=== PATIENT | female | born 1960 | race Caucasian/White ===

== ENCOUNTER 2019-03-16 15:53 | Inpatient (IN) | payer OTHER ==
[~2019-03-16] VITALS: Ht 172.7 cm; Wt 88.6 kg
[2019-03-16 16:18] VITALS: Ht 172.7 cm; Wt 88.6 kg
[2019-03-16 18:14] LABS: PLATELET COUNT 187 x10^3mcL (130-400)
[2019-03-16 18:19] LABS: BILIRUBIN TOTAL 0.9 mg/dL (0.20-1.00); CARBON DIOXIDE 31.8 mmol/L (21-32); POTASSIUM SERUM 3.8 mmol/L (3.5-5.1); TOTAL PROTEIN, SERUM 7.4 g/dL (6.4-8.2)
[2019-03-16 18:32] LABS: ALBUMIN 2.9 g/dL (3.4-5.0); BAND NEUTROPHIL 2 % (0-10); BASOPHIL 0 % (0-2); CREATININE SERUM 1.5 mg/dL (0.6-1.0); MONOCYTE 1 % (0-7); SEGMENTED NEUTROPHILS 89 % (37-75)
[2019-03-16 18:33] LABS: PLATELET MORPHOLOGY PLATELETS NORMAL; rbc morphology (normal/abnorm) NORMAL (NORMAL)
[2019-03-16 18:50] LABS: UA SPECIFIC GRAVITY >=1.030 (1.005-1.035); microscopic required? YES; urine erythrocyte NEGATIVE (NEGATIVE)
[2019-03-16] MEDS ORDERED: NEU300 PO (20:27)
[2019-03-16] MEDS ORDERED: CYMBALTA60 M1 PO (20:28)
[2019-03-16] MEDS ORDERED: METHADONE (20:31)
[2019-03-16] MEDS ORDERED: SEROQUEL XR300 M1 PO (20:32)
[2019-03-16 22:24] LABS: CHOLESTEROL/HDL RATIO 2.8; MAGNESIUM 1.8 mg/dL (1.8-2.4); PHOSPHOROUS 2.9 mg/dL (2.5-4.9)
[2019-03-16 22:44] VITALS: BP 87/38
[2019-03-16 23:38] VITALS: BP 87/38
[2019-03-17 05:24] VITALS: BP 105/54
[2019-03-17 06:27] LABS: PLATELET COUNT 174 x10^3mcL (130-400)
[2019-03-17 06:55] LABS: CALCIUM 8.5 mg/dL (8.5-10.1); CARBON DIOXIDE 30.6 mmol/L (21-32); CREATININE SERUM 1.2 mg/dL (0.6-1.0); POTASSIUM SERUM 4.1 mmol/L (3.5-5.1)
[2019-03-17 07:19] LABS: BASOPHIL % 0 % (0-2); RED CELL DISTRIBUTION WIDTH 17.3 % (11.5-14.5)
[2019-03-17 08:28] VITALS: BP 111/62
[2019-03-17 11:53] VITALS: BP 98/68
[2019-03-17 15:57] VITALS: BP 96/61
[2019-03-17 20:27] VITALS: BP 115/58
[2019-03-18 05:04] VITALS: BP 108/63
[2019-03-18 06:51] LABS: CALCIUM 8.5 mg/dL (8.5-10.1); CARBON DIOXIDE 35.6 mmol/L (21-32); CHLORIDE SERUM 104 mmol/L (98-107); CREATININE SERUM 0.8 mg/dL (0.6-1.0); GFR1 > 60 mL/min; GLUCOSE SERUM 92 mg/dL (74-106); PHOSPHOROUS 2.7 mg/dL (2.5-4.9); POTASSIUM SERUM 3.8 mmol/L (3.5-5.1); SODIUM SERUM 143 mmol/L (136-145)
[2019-03-18 07:00] LABS: PLATELET COUNT 183 x10^3mcL (130-400)
[2019-03-18 12:33] LABS: BAND NEUTROPHIL 7 % (0-10); MONOCYTE 6 % (0-7); SEGMENTED NEUTROPHILS 75 % (37-75)
[2019-03-18 12:34] LABS: PLATELET MORPHOLOGY PLATELETS NORMAL
[2019-03-18 12:37] LABS: rbc morphology (normal/abnorm) ABNORMAL (NORMAL)
[2019-03-18 13:13] VITALS: BP 143/61
[2019-03-18 17:20] VITALS: BP 108/49
[2019-03-18 20:58] VITALS: BP 129/76
[2019-03-19 04:56] VITALS: BP 110/52
[2019-03-19] MEDS ORDERED: NORCO1 TA2 PO (08:48)
[2019-03-19 09:26] VITALS: BP 99/58
[2019-03-19 12:35] VITALS: BP 87/44
[2019-03-19 13:54] VITALS: BP 87/44
[2019-03-19 16:49] VITALS: BP 102/67
[2019-03-19 21:01] VITALS: BP 104/58
[2019-03-20 05:41] VITALS: BP 112/76
[2019-03-20 08:47] VITALS: BP 105/63
[2019-03-20 14:19] VITALS: BP 105/63
== END 2019-03-20 20:02 | DRG 313 ==
LOC: ED 15:53 → EDBD 21:27 → MU 21:27 → DU 21:27 → MU 03-19 12:39
PROVIDERS: Emergency Medicine; Podiatrist Foot & Ankle Surgery; ADMIT Internal Medicine
PROC: 0QSG04Z Reposition Right Tibia with Internal Fixation Device, Open Approach (ICD-10-PCS; 2019-03-18)
PROC: 0QSJ04Z Reposition Right Fibula with Internal Fixation Device, Open Approach (ICD-10-PCS; principal; 2019-03-18 07:30)
DX: S82.851A Displaced trimalleolar fracture of right lower leg, initial encounter for closed fracture (principal); N17.0 Acute kidney failure with tubular necrosis; J96.01 Acute respiratory failure with hypoxia; R65.10 Systemic inflammatory response syndrome (SIRS) of non-infectious origin without acute organ dysfunction; J44.1 Chronic obstructive pulmonary disease with (acute) exacerbation; N39.0 Urinary tract infection, site not specified; M54.5 Low back pain; K21.9 Gastro-esophageal reflux disease without esophagitis; G89.29 Other chronic pain; F17.210 Nicotine dependence, cigarettes, uncomplicated; S70.02XA Contusion of left hip, initial encounter; W01.0XXA Fall on same level from slipping, tripping and stumbling without subsequent striking against object, initial encounter; Y93.89 Activity, other specified; Y92.018 Other place in single-family (private) house as the place of occurrence of the external cause; Z98.1 Arthrodesis status
CPT/HCPCS: 83880; 97116-GP; 97530-GP; 99406; C1713; J0171; J0696; J2250; J2270; J3010; J3490; J7030; J7613; J7620; Q0092

== ENCOUNTER 2019-03-27 21:48 | Inpatient (IN) | payer OTHER ==
[~2019-03-27] VITALS: Ht 170.2 cm; Wt 94.8 kg
[~2019-03-27 21:48] MED LIST: CYMBALTA60 M1 PO; METHADONE; NEU300 PO; NORCO1 TA2 PO; SEROQUEL XR300 M1 PO
[2019-03-27 22:00] VITALS: Ht 170.2 cm; Wt 94.8 kg
[2019-03-28] VITALS (8 sets, daily range): BP systolic 96–113; BP diastolic 44–65
[2019-03-28 01:04] LABS: CALCIUM 8.2 mg/dL (8.5-10.1); CARBON DIOXIDE 32.3 mmol/L (21-32); CHLORIDE SERUM 104 mmol/L (98-107); CREATININE SERUM 0.7 mg/dL (0.6-1.0); GFR1 > 60 mL/min; GLUCOSE SERUM 95 mg/dL (74-106); POTASSIUM SERUM 3.8 mmol/L (3.5-5.1); SODIUM SERUM 143 mmol/L (136-145)
[2019-03-28 01:06] LABS: PLATELET COUNT 332 x10^3mcL (130-400); RED CELL DISTRIBUTION WIDTH 16.9 % (11.5-14.5)
[2019-03-28 01:08] LABS: ALBUMIN 1.9 g/dL (3.4-5.0); ALKALINE PHOSPHATASE 152 U/L (46-116); ALT/SGPT 16 U/L (14-59); AST/SGOT 20 U/L (15-37); BILIRUBIN TOTAL 0.62 mg/dL (0.20-1.00); TOTAL PROTEIN, SERUM 6.2 g/dL (6.4-8.2)
[2019-03-28 01:19] LABS: CK-MB 0.9 ng/mL (0-3.6)
[2019-03-28 01:39] LABS: microscopic required? YES; urine erythrocyte NEGATIVE (NEGATIVE)
[2019-03-28] MEDS ORDERED: GOOD NEIGH1200 MG/15 PO (02:46)
[2019-03-28] MEDS ORDERED: DULCOLAX10 M1 RC (02:46)
[2019-03-28 04:07] LABS: MAGNESIUM 1.8 mg/dL (1.8-2.4); PHOSPHOROUS 3.9 mg/dL (2.5-4.9)
[2019-03-28 14:55] LABS: AMPHETAMINE QUAL UR NONE DETECTED (See below)
[2019-03-29 04:16] VITALS: BP 106/65
[2019-03-29 06:53] LABS: CALCIUM 8.1 mg/dL (8.5-10.1); CARBON DIOXIDE 35.7 mmol/L (21-32); CHLORIDE SERUM 104 mmol/L (98-107); CREATININE SERUM 0.7 mg/dL (0.6-1.0); GFR1 > 60 mL/min; GLUCOSE SERUM 89 mg/dL (74-106); MAGNESIUM 1.9 mg/dL (1.8-2.4); PHOSPHOROUS 3.1 mg/dL (2.5-4.9); POTASSIUM SERUM 3.7 mmol/L (3.5-5.1); SODIUM SERUM 143 mmol/L (136-145)
[2019-03-29 08:20] LABS: BASOPHIL % 0.2 % (0-2); PLATELET COUNT 342 x10^3mcL (130-400)
[2019-03-29 08:21] LABS: RED CELL DISTRIBUTION WIDTH 17.5 % (11.5-14.5)
[2019-03-29 08:32] VITALS: BP 108/63
[2019-03-29 14:26] VITALS: BP 119/66
== END 2019-03-29 15:52 | DRG 133 ==
LOC: ED 21:48 → DU 03-28 02:33
PROVIDERS: Emergency Medicine; ADMIT Internal Medicine
DX: J96.21 Acute and chronic respiratory failure with hypoxia (principal); E43 Unspecified severe protein-calorie malnutrition; J44.9 Chronic obstructive pulmonary disease, unspecified; N39.0 Urinary tract infection, site not specified; J96.22 Acute and chronic respiratory failure with hypercapnia; F11.20 Opioid dependence, uncomplicated; R73.03 Prediabetes; G89.4 Chronic pain syndrome; D64.9 Anemia, unspecified; M54.9 Dorsalgia, unspecified; F17.210 Nicotine dependence, cigarettes, uncomplicated; Z68.28 Body mass index [BMI] 28.0-28.9, adult; Z98.1 Arthrodesis status
CPT/HCPCS: 36600; 83880; 87804; J0696; J2310; J2543; J7030; J7040; J7620; Q9967

== ENCOUNTER 2019-05-04 14:23 | Inpatient (IN) | payer OTHER ==
[~2019-05-04] VITALS: Ht 172.7 cm; Wt 79.0 kg
[~2019-05-04 14:23] MED LIST changes: +DULCOLAX10 M1 RC; +GOOD NEIGH1200 MG/15 PO
[2019-05-04 14:43] VITALS: Ht 172.7 cm; Wt 79.0 kg
--- NOTE | 2019-05-04 14:50 | NUR ---
BROUGHT IN BY AMBULANCE. PT FROM [facility], HX OF R ANKLE SURGERY ON 04/17/19. PT STATES SHE BROKE HER ANKLE 1 MONTH AGO, TRIPPED OVER A SPRINKLER. PT HERE FOR EVAL DUE TO PAIN TO R ANKLE AND INFECTION @ SURGICAL SITE.
--- NOTE | 2019-05-04 15:35 | NUR ---
PT CALM AND COOPERATIVE. DAUGHTERS ARE NO LONGER AT BEDSIDE. RESPS E/U, PT ON FULL CM, BED RAIL UP X1 FOR SAFETY.
--- NOTE | 2019-05-04 16:00 | NUR ---
INFORMED DR. KAUFMAN OF LOW BP OF 70/37. PT AAOX4, SP02 95% ON RA. PER DR. KAUFMAN FIVE 500CC BOLUS INSTEAD OF 250CC, AND HOLD OFF ON FENTYL RX. PT PLACED ON 2L 02 NC FOR PREVENTION.
[2019-05-04 16:05] LABS: BASOPHIL % 0.2 % (0-2)
[2019-05-04 16:07] LABS: PLATELET COUNT 405 x10^3mcL (130-400); RED CELL DISTRIBUTION WIDTH 17.6 % (11.5-14.5)
[2019-05-04 16:15] LABS: CALCIUM 8.9 mg/dL (8.5-10.1); CARBON DIOXIDE 32.1 mmol/L (21-32); CREATININE SERUM 1.2 mg/dL (0.6-1.0); POTASSIUM SERUM 4.4 mmol/L (3.5-5.1)
[2019-05-04 16:26] LABS: BILIRUBIN TOTAL 0.36 mg/dL (0.20-1.00); C REACTIVE PROTEIN 7.6 mg/dL (<=0.9); TOTAL PROTEIN, SERUM 7.6 g/dL (6.4-8.2)
--- NOTE | 2019-05-04 16:27 | NUR ---
PT AAOX4, RESPS E/U, PT BP NOW 91/63 (72).
[2019-05-04 16:28] LABS: ALBUMIN 2.5 g/dL (3.4-5.0)
[2019-05-04 16:30] LABS: FREE T4 0.98 ng/dL (0.76-1.46); FREE THYROXINE INDEX 2.5 ug/dL (1.4-4.5); T4(THYROXINE) 7.5 ug/dL (4.7-13.3)
[2019-05-04 17:04] LABS: CK-MB 1.8 ng/mL (0-3.6)
[2019-05-04 17:17] LABS: ERYTHROCYTE SED RATE 61 mm/hr (0-30)
--- NOTE | 2019-05-04 17:20 | NUR ---
PER PT HER HOME MEDS ARE THE SAME LAST WEEK. ALSO BP IS 72/41
[2019-05-04 17:26] LABS: T3 TOTAL 0.8 ng/mL
--- NOTE | 2019-05-04 17:40 | NUR ---
PT AAOX4, PT CALM AND COOPERATIVE. RR=15 HR=97 SP02=96 ON 2L NC. BP=84/57 MAP OF 66.
--- NOTE | 2019-05-04 17:43 | NUR ---
REPORT GIVEN TO
--- NOTE | 2019-05-04 18:00 | NUR ---
NO CHANGE IN STATUS. WILL CONTINUE TO MONITOR.
--- NOTE | 2019-05-04 18:41 | NUR ---
RC'D PT FROM ED VIA ELENA WITH RN PRESENT AT BEDSIDE. PT A/A/O/X4, SPEECH CLEAR AND APPROPRIATE. DENIES FERREIRA/DIZZINESS. RESPIRATIONS E/U. ON 1.5 L O2 VIA NC, PT DENIES SOB. O2 SAT 98%, NO RESP DISTRESS NOTED. PT PLACED ON BASE WAD OPERATOR ADJUSTER AT THIS TIME. PT DENIES CP. DRESSING NOTED TO ABDULAZIZ BAKER. PER NUCLEAR PHYSICS TEACHER REPORT "PODIATRY DRESSED PRIOR TO ARRIVAL TO ICU". VANCO CURRENTLY INFUSING AT THIS TIME TO RAC IV, NO INFLAMMATION/ERYTHEMA NOTED. PT RESTIGN IN BED AT THIS TIME WITH NO APPARENT SIGNS OF DISTRESS. WILL ENDORSE TO EARLY CHILDHOOD DIRECTOR RN
--- NOTE | 2019-05-04 18:47 | NUR ---
HAND-OFF REPORT TO MARY FROM ICU.
[2019-05-04 18:54] LABS: MAGNESIUM 2.5 mg/dL (1.8-2.4); PHOSPHOROUS 4.5 mg/dL (2.5-4.9)
--- NOTE | 2019-05-04 19:01 | NUR ---
2ND NS BOLUS INITIATED AT THIS TIME. WILL CONT TO MONITOR BP AT THIS TIME. ENDORSED TO PRESCHOOL ADVISER RN
--- NOTE | 2019-05-04 19:08 | NUR ---
DR. AGUILAR AND DR. CASILLAS, PODIATRY ARE AT BEDSIDE TO CHECK THE PATIENT'S RIGHT ANKLE WOUND. PHOTOGRAPH OF WOUND TAKEN AND A SWAP FROM THE WOUND COLLECTED TO SEND TO LAB FOR CULTURE.
[2019-05-04 19:13] VITALS: BP 86/39
--- NOTE | 2019-05-04 19:15 | NUR ---
RECEIVED REPORT FROM ARIN VASQUEZ. WILL RESUME CARE.
--- NOTE | 2019-05-04 19:22 | NUR ---
DR. AGUILAR AND DR. CASILLAS AT BEDSIDE DISCUSSING EXTERNAL FIXATION OF THE RIGHT ANKLE. ALL RISKS, BENEFITS, AND COMPLICATIONS DISCUSSED WITH PT. ALL QUESTIONS AND CONCERNS ADDRESSED. INFORMED CONSENT WAS OBTAINED AND SIGNED BY PT.
--- NOTE | 2019-05-04 19:30 | NUR ---
REPORT GIVEN TO CARMEL SAHA RN. CONCERNS ADDRESSED.
--- NOTE | 2019-05-04 19:43 | NUR ---
XRAY TO R FOOT BEING DONE AT BEDSIDE.
--- NOTE | 2019-05-04 20:38 | NUR ---
LEVOPHED GTT INITIATIATED AT 2MCG/MIN. BP 78/36. MAP 50.
--- NOTE | 2019-05-04 20:48 | NUR ---
DR. AGUILAR AND DR. CASILLAS AT BEDSIDE TO BEGIN EXTERNAL FIXATION TO THE RIGHT ANKLE. WILL CONTINUE TO MONITOR.
[2019-05-04 21:05] VITALS: BP 152/127
--- NOTE | 2019-05-04 21:59 | NUR ---
LEVOPHED GTT TURNED OFF AT THIS TIME. BP 122/69. MAP 86.
[2019-05-04 23:12] VITALS: BP 99/57
--- NOTE | 2019-05-05 01:58 | NUR ---
LEVOPHED STARTED AT 2MCG/MIN. BP 82/51. MAP 63.
--- NOTE | 2019-05-05 02:53 | NUR ---
PAGED DR. ALBARADO FOR LAB VALUE ALBUMIN 2.5. AWAITING NEW ORDERS.
[2019-05-05 03:16] VITALS: BP 109/54
--- NOTE | 2019-05-05 04:45 | NUR ---
OFFICE MACHINE SERVICE SUPERVISOR AT BEDSIDE FOR BLOOD DRAW.
[2019-05-05 04:59] LABS: BASOPHIL % 0.7 % (0-2); PLATELET COUNT 333 x10^3mcL (130-400)
[2019-05-05 05:01] LABS: RED CELL DISTRIBUTION WIDTH 17.5 % (11.5-14.5)
--- NOTE | 2019-05-05 05:08 | NUR ---
DR. ALBARADO AT BEDSIDE ASSESSING PT. UPDATES PROVIDED. PER MD ORDER LEVOPHED GTT STOPPED AT THIS TIME. BP 108/52. MAP 70.
[2019-05-05 05:15] LABS: CALCIUM 7.8 mg/dL (8.5-10.1); CARBON DIOXIDE 27.3 mmol/L (21-32); CHLORIDE SERUM 106 mmol/L (98-107); CREATININE SERUM 0.9 mg/dL (0.6-1.0); GFR1 > 60 mL/min; GLUCOSE SERUM 91 mg/dL (74-106); MAGNESIUM 2.2 mg/dL (1.8-2.4); PHOSPHOROUS 4.5 mg/dL (2.5-4.9); SODIUM SERUM 139 mmol/L (136-145)
--- NOTE | 2019-05-05 06:45 | NUR ---
ONEAL CATHETER 16F INSERTED WITH ASEPTIC TECHNIQUE PER DR. OMER ORDER. 680CC OF STRAW COLORED URINE OUTPUT NOTED. PT TOLERATED WELL.
--- NOTE | 2019-05-05 07:05 | NUR ---
GAVE REPORT TO MARGARET VASQUEZ. ALL QUESTIONS AND CONCERNS ADDRESSED.
--- NOTE | 2019-05-05 07:20 | NUR ---
RC'D REPORT FROM YIFAN VASQUEZ. ALL QUESTIONS AND CONCERNS ADDRESSED
[2019-05-05 08:00] VITALS: BP 95/47
--- NOTE | 2019-05-05 08:00 | NUR ---
RC'D PT RESTING IN BED WITH NO APPARENT SIGNS OF DISTRESS. A/A/O/X4, SPEECH CLEAR AND APPROPRIATE. DENIES FERREIRA/DIZZINESS. SINUS KAE ON MONITOR. PT DENIES CP. RESPIRATIONS E/U. LUNGS CTA. ON 1.5 L O2 VIA NC, DENIES SOB. O2 SAT 98%, NO RESP DISTRESS NOTED. ABDOMEN SOFT AND NONTENDER. ACTIVE BS. DENIES N/V. NO BM NOTED AT THIS TIME. F/C WITH YELLOW URINE DRAINING TO GRAVITY, SECURED IN PLACE. NO VAGINAL DISCHARGE/INFLAMMATION NOTED. RLE DRESSING IN PLACE, CDI. PT S/P RIGHT ANKLE ORIF ON 03/18/19. NS INFUSING @125 TO RAC, NO S/S OF INFILTRATION NOTED. BED IN LOWEST POSITION. WILL CONT TO MONITOR
--- NOTE | 2019-05-05 08:15 | NUR ---
PODIATRY AND TEAM AT BEDSIDE TO DISCUSS POC WITH PT.
[2019-05-05 08:30] LABS: IRON 21 ug/dL (50-170); TOTAL IRON BINDING CAPACITY 216 ug/dL (250-450)
[2019-05-05 08:37] LABS: UA SPECIFIC GRAVITY >=1.030 (1.005-1.035); microscopic required? YES; urine erythrocyte NEGATIVE (NEGATIVE)
--- NOTE | 2019-05-05 09:47 | NUR ---
DR MAIN AND MED TEAM PRESENT AT BEDSIDE DISCUSSING PT POC
[2019-05-05 11:00] VITALS: BP 94/51
[2019-05-05 15:30] VITALS: BP 121/51
--- NOTE | 2019-05-05 16:40 | NUR ---
REPORT CALLED AND GIVEN TO ASTON VASQUEZ. ALL QUESTIONS ADDRESSED AT THIS TIME. PT RESTIGN IN BED WITH NO APPARENT SIGNS OF DISTRESS. RESPIRATIONS EQUAL AND UNLABORED. ON 1.5L O2 VIA NC, DENIES SOB. O2 SAT CURRENTLY 97%, NO RESP DISTRESS. AWAITING FOR TRANSFER AT THIS TIME.
[2019-05-05 17:20] VITALS: BP 114/56
--- NOTE | 2019-05-05 17:20 | NUR ---
RECEIVED PT FROM ICU NURSE A/OX4. NO ACUTE DISTRESS NOTED. RESP EVEN AND UNLABORED ON 2L NC. DENIES SOB. IV INTACT AND PATENT. S/P ORIF WITH DRESSING TO RT LEG CDI. BED IN LOW POSITION. CALL LIGHT WITHIN REACH. WILL CONTINUE TO MONITOR.
--- NOTE | 2019-05-05 17:30 | NUR ---
PER MD ORDER, AMIODORONE DRIP INITIATED AT 1 MG/HR.
--- NOTE | 2019-05-05 18:21 | NUR ---
PT C/O OF HEADACHE 03/26. GAVE TYLENOL ORDERED. WILL CONTINUE TO MONITOR.
--- NOTE | 2019-05-05 18:35 | NUR ---
PT ASLEEP BUT AROUSABLE. RESP EVEN AND UNLABORED ON 1.5L NC. IV INTACT AND PATENT. ONEAL CATH IN PLACE DRAINING YELLOW URINE. RT ANKLE DRESSING CDI. BED IN LOW POSITION. CALL LIGHT WITHIN REACH. WILL BE ENDORSED.
[2019-05-05 20:14] VITALS: BP 119/65
--- NOTE | 2019-05-05 22:44 | NUR ---
RECEIVED REPORT FROM LAB, BLOOD CULTURE CAME BACK GRAM POSITIVE COCCI, PAIRS IN CHAINS. DR. ALBARADO MADE AWARE. NO NEW ORDERS AT THIS TIME.
--- NOTE | 2019-05-05 22:50 | NUR ---
LATE ENTRY: PT. AWAKE, ALERT, ORIENTED X4. DENIES DIZZYNESS. BREATH SOUNDS CLEAR THROUGHOUT LUNG SALAZAR, RESP. EVEN, UNLABORED. PT. ON 1.5 LITER/NC. NO SOB NOTED. DENIES ANY CHESTPAIN OR DISCOMFORT. PEDAL PULSE TO LLE STRONG. UNABLE TO PALPATE RLE PEDAL PULSE DUE TO CAST DRSG. PT. ABLE TO WIGGLE HER TOES AND HAS SENSATION PRESENT. ABD. SOFT AND ROUND, BOWEL SOUNDS ACTIVE. F/C DRAINING WELL TO GRAVITY. IVF NS INFUSING AT 125CC/HR TO RAC, SITE INTACT. CALL LIGHT WITHIN REACH.
--- NOTE | 2019-05-06 01:53 | NUR ---
PT. W/ EYES CLOSED, APPEARS TO BBE SLEEPING. NO C/O PAIN TO RLE AANKLE REGION THUS FAR. WILL CONTINUE TO MONITOR.
[2019-05-06 05:24] VITALS: BP 103/55
--- NOTE | 2019-05-06 06:31 | NUR ---
SEVERAL ATTEMPTS THIS MORNING TO REPLACE PT.'S IV, SIX TIME. NEW IV SITE ESABLISHED TO LT. WRIST AREA, FLUSHING WELL, SITE SECURE. PT. DENIES ANY PAIN THIS MORNING. RECEIVED HIBICLENS BATH. PRE OP CHECK LIST COMPLETED AT THIS TIME. CALL LIGHT WITHIN REACH. WILL ENDORSE PT. CARE TO INCOMING NURSE.
[2019-05-06 07:25] LABS: CALCIUM 8.4 mg/dL (8.5-10.1); CARBON DIOXIDE 30.5 mmol/L (21-32); CHLORIDE SERUM 105 mmol/L (98-107); CREATININE SERUM 0.8 mg/dL (0.6-1.0); GFR1 > 60 mL/min; GLUCOSE SERUM 68 mg/dL (74-106); MAGNESIUM 2.1 mg/dL (1.8-2.4); PHOSPHOROUS 3.3 mg/dL (2.5-4.9); POTASSIUM SERUM 4.4 mmol/L (3.5-5.1); SODIUM SERUM 141 mmol/L (136-145)
--- NOTE | 2019-05-06 07:30 | NUR ---
LATE ENTRY: REPORT GIVEN TO OR NURSEPHILLIP. ALL CONCERNS ADDRESSED. CHECK LIST COMPLETED. PT. STATED THAT SHE PREFERRED TO REMOVE HER DENTURES IN OR. PHILLIP MADE AWARE. PT. TRANSFERRED DOWN TO OR. PT. CARE ENDORSED OVER TO INCOMING NURSE.
--- NOTE | 2019-05-06 07:38 | NUR ---
AT 0715 - RECEIVED PATIENT FROM NIGHT NURSE. PATIENT AWAKE, ALERT AND ORIENTED. PATIENT ON THE WAY TO OR FOR SURGERY TO R ANKLE.
--- NOTE | 2019-05-06 08:54 | NUR ---
Nutrition Note: Consult received for malnutrition on 05/06/19. Pt. admitted with R knee cellulitis and hypotension per H and P documentations. Per nutritional screening, pt. does not meet criteria for high risk, as low albumin is not an indicator for malnutrition. Pt. will be assessed as low risk with initial assessment due 05/13/19.
[2019-05-06 08:56] LABS: BASOPHIL % 0.8 % (0-2); PLATELET COUNT 371 x10^3mcL (130-400)
[2019-05-06 08:58] LABS: RED CELL DISTRIBUTION WIDTH 17.8 % (11.5-14.5)
[2019-05-06 08:59] LABS: rbc morphology (normal/abnorm) ABNORMAL (NORMAL)
--- NOTE | 2019-05-06 13:48 | NUR ---
AT 1320 - PATIENT BACK IN ROOM FOLLOWING R ANKLE ORIF, REPAIR OF MEDIAL AND POSTERIO MELLIOLUS AND REALIGNMENT OF TIBIOTALOR JOINT UNDER GENERAL AND LOCAL ANAESTHESIA. PATIENT IS AWAKE, ALERT AND ORIETNED. C/O PAIN. HAD RECEIVED TOTAL OF 6 MG DILAUDID IN RECOVERY. SCHEDULED MEDS FOR 1300, INCLUDING NORCO 5/325 ADMINSITERED PER EMAR. IV INFUSION OF NS COMMENCED AT 100 ML/HR. PATIENT MADE COMFORTABLE. RLE ELEVATED ON 3 PILLOWS. AT 1345 - PATIENT'S MOTHER AT BEDSIDE. REQUESTED TO KNOW DETAILS OF SURGERY. CALL PALCED FOR DR MERLOS TO SPEAK WITH PATIENT AND MOTHER.
--- NOTE | 2019-05-06 14:23 | NUR ---
PATIENT GIVEN SCHEDULED DOSE OF METHADONE. DR GALVEZ AT BEDSIDE SPEAKING WITH PATIENT AND MOTHER.
--- NOTE | 2019-05-06 15:12 | NUR ---
PATIENT HAS BEEN PLACED BACK ON TELEMETRY MONITORING. MONITOR SHOWING SINUS RHYTHM; RATE 70'S.
--- NOTE | 2019-05-06 15:13 | NUR ---
PAATIENT AMBULATED IN HALLWAY, USING WALKER AND WITH PORTABLE O2. TOLERATED WELL. DENIES ANY PAIN. NOW SITTING IN CHAIR. FAMILY MEMBER AT BEDSIDE. CALL LIGHT WITHIN REACH.
--- NOTE | 2019-05-06 15:28 | NUR ---
SPOKE WITH DR BALLESTEROS. NOTIFIED OF WOUND CULTURE RESULTS AND SENSITIVITY AVAILABILITY. ALL OF PATIENT'S ANTIBIOTICS HAD BEEN DISCONTINED. DR WILL LOOK INTO IT AND ORDER APPROPRIATE.
--- NOTE | 2019-05-06 16:20 | NUR ---
AT 1600 - GIVEN MORPHINE 2 MG IVP PER EMAR FOR C/O RLE PAIN 10/10. BP IN NORMAL RANGE AT THIS TIME. ALSO COMMENCED ON SQ HEPARIN. FIRST DOSE ADMINISTERED. SCDS APPLIED TO LLE. AT 1615 - ZOSYN IN PROGRESS. LAB AND RADIOLOGY AT BEDSIDE.
--- NOTE | 2019-05-06 17:14 | NUR ---
PATIENT SITTING OUT OF BED IN CHAIR. MEDICATED WITH NIRCO PER EMAR FOR HIP PAIN 01/24. FAMILY AT BEDSIDE AND ATTENTIVE TO PATIENT NEEDS.
[2019-05-06 17:35] VITALS: BP 122/56
--- NOTE | 2019-05-06 18:33 | NUR ---
VSS. AFEBRILE. PAIN UNDER CONTROL WITH NORCO . RESPIRATIONS REGULAR. USING INSENTIVE SPIROMETER INTERMITTENTLY.. AMBULATES TO BATHROOM FOR TOILET NEEDS. IV NOW INFUSING XITHROMAX. WILL ENDORSE CARE TO NIGHT NURSE.
--- NOTE | 2019-05-06 18:44 | NUR ---
AT 1735 - MEDICATED WITH NORCO 7.5/325 PER EMAR FOR C/O PERSISTANT PAIN. PATIENT DECLINED TO EAT AT THIS TIME. AT 1830 - PATIENT SLEEPING. RESPIRATIONS REGULAR. SINUS RHYTHM ON MONITOR. BP WNL. IV INFUSING VANCOMYCIN AT THIS TIME. SCDS TO LLE IN PLACE. DRESSING TO RLE IS INTACT BUT DAMP. PATIENT MOVING TOES. GOOD CIRCULATION. LEG ELEVATED ON PILLOWS. GOOD URINE OUTPUT VIA ONEAL CATHETER. 700 ML SINCE SURGERY. WILL ENDORSE CARE TO NIGHT NURSE.
--- NOTE | 2019-05-06 19:33 | NUR ---
PT. AWAKE, ALERT, APPEARS COMFORTABLE. DENIES NEED FOR PAIN MEDICATION. S/P RLE ANKLE ORIF W/ REALIGNMENT. DRSG CDI. PT. ABLE TO WIGGLE HER TOES. TOES SLIGHTLY PUFFY AT THIS TIME. BREATH SOUNDS CLEAR THROUGHOUT LUNG SALAZAR, PT. W/ 2L/NC. RESP. EVEN, UNLABORED. NO SOB NOTE. DENIES CHEST PAIN, NSR ON TELE #1. ABD. SOFT AND ROUND, BOWEL SOUNDS ACTIVE. F/C DRAINING WELL TO GRAVITY. CALL LIGHT WITHIN REACH.
[2019-05-06 20:47] VITALS: BP 105/61
--- NOTE | 2019-05-06 22:08 | NUR ---
PT. WAS C/O PAIN EARLIER, RECEIVED ROUTINE DOSE OF METHADONE. PT. W/ EYES CLOSED AND APPEARS TO BE SLEEPING INTERMITTENTLY. NO OBVIOUS SIGNS OF DISTRESS AT THIS TIME. WILL CONTINUE TO MONITOR.
--- NOTE | 2019-05-06 22:48 | NUR ---
PT. RESTING BUT HAS EPISODES OF CRYING AND TALKING ABOUT MISSING HER MOM. PRN ATIVAN X1 DOSE WAS ORDERED ON STAND BY. ATIVAN GIVEN. WILL MONITOR.
--- NOTE | 2019-05-07 02:04 | NUR ---
PT. AWAKE, RESTLESS IN BED. PT. DRUGGY, BUT C/O PAIN IN RLE SURGICAL REGION. PAIN LEVEL 8/10 PER PT. DRSG REMAINS INTACT, NO DRAINAGE NOTED. PT. ABLE TO WIGGLE HER TOES. PT.'S F/C NOTED TO BE OUT. PT. ACCIDENTLY PULLED IT, BALLOON INTACT. NO BLEEDING NOTED AT THIS TIME. BLOOD PRESSURE 108/53, HR 71, O2 SAT 91% RA. PT. PLACED ON 2L/NC, O2 SAT NOW 96%. PRN MORPHINE IVP GIVEN ORDERED. WILL CONTINUE TO MONITOR.
--- NOTE | 2019-05-07 03:24 | NUR ---
DR. RDZ MADE AWARE THAT PATIEN'S REACTION TO ANESTHIA IS STILL LINGERING. PT. IS 'GOOFY'. MADE AWARE THAT PT. PULLED HER F/C AND ALSO MADE AWARE THAT PT. WAS REMOVING HER DRSG FROM HER RT. ANKEL SURGERY. PT. STILL GROANING AND LIFTING HER RLE OFF BED. REQUEST FOR PAIN MEDICATION TO HELP PATIENT. PRN TORADOL ORDERED.
--- NOTE | 2019-05-07 04:06 | NUR ---
RECEIVED PRN ORDER FOR TORADOL IVP, WHICH WAS GIVEN. WILL MONITOR FOR EFFECTIVENESS OF MEDICATION.
[2019-05-07 05:31] VITALS: BP 112/62
[2019-05-07 06:33] LABS: BASOPHIL % 0.4 % (0-2); PLATELET COUNT 384 x10^3mcL (130-400)
[2019-05-07 06:44] LABS: CALCIUM 8.2 mg/dL (8.5-10.1); CARBON DIOXIDE 28.8 mmol/L (21-32); CHLORIDE SERUM 104 mmol/L (98-107); CREATININE SERUM 0.8 mg/dL (0.6-1.0); GFR1 > 60 mL/min; GLUCOSE SERUM 74 mg/dL (74-106); MAGNESIUM 1.9 mg/dL (1.8-2.4); PHOSPHOROUS 3.3 mg/dL (2.5-4.9); POTASSIUM SERUM 4.3 mmol/L (3.5-5.1); SODIUM SERUM 139 mmol/L (136-145)
[2019-05-07 06:59] LABS: RED CELL DISTRIBUTION WIDTH 17.8 % (11.5-14.5)
--- NOTE | 2019-05-07 07:30 | NUR ---
PT. CARE ENDORSED TO INCOMING NURSE. IVF INFUSING WELL, SITE INTACT. CALL LIGHT WITHIN REACH.
--- NOTE | 2019-05-07 07:48 | NUR ---
RECEIVED IN NO RESP. DISTRESS, DOSING ON AND OFF, NO C/O PAIN OR DISCOMFORT AT THIS TIME. IVF INFUSING WELL AND SITE CLEAR. CALL LIGHT WITHIN REACH. WILL CONTINUE WITH PLAN OF CARE.
[2019-05-07 08:58] VITALS: BP 119/69
[2019-05-07 12:22] VITALS: BP 112/65
--- NOTE | 2019-05-07 12:25 | NUR ---
ONEAL CATH INSERTED BY A STUDENT NURSE. IN PLACE AND DRAINING WELL. PT TOLERATED WELL. MEDICATED WITH DILAUDID IVP PER ORDER. NO ACUTE DISTRESS NOTED. PT IS A BIT PLEASANTLY CONFUSED. PULLED OUT IV AND TELE. HK REISERTED AND IVF INFUSING WELL.
[2019-05-07 13:41] LABS: BASOPHIL % 0.4 % (0-2); PLATELET COUNT 383 x10^3mcL (130-400)
[2019-05-07 13:53] LABS: RED CELL DISTRIBUTION WIDTH 17.9 % (11.5-14.5)
[2019-05-07 17:32] VITALS: BP 96/55
--- NOTE | 2019-05-07 17:47 | NUR ---
C/O PAIN TO RT LE 07/26, MEDICATED WITH NORCO PER ORDER. RLE ELEVETED WITH PILLOW.
--- NOTE | 2019-05-07 19:18 | NUR ---
RESTING IN NO DISTRESS. NO CHANGES IN VS. NO C/O PAIN OR DISCOMFORT. RLE ELEVETED WITH PILLOW. IVF INFUSING WELL AND SITE CLEAR. CALL LIGHT WITHIN REACH. WILL BE ENDORSED TO INCOMING SHIFT.
--- NOTE | 2019-05-07 19:20 | NUR ---
REC'D PT FROM DAY NURSE. PT RESTING IN BED. AAOX4, SPEECH CLEAR, FOLLOWS COMMANDS. TELE 1. DENIES CP, DIZZINESS, OR PALPITATIONS. DENIES RESP DISTRESS OR SOB. BREATHING EVEN/UNLABORED ON RA, SPO2 92%. S/P R ANKLE ORIF. DRESSING CDI. RLE ELEVATED WITH PILLOWS. REPORTS SOME NUMBING AND TINGLING TO RLE. C/O "FLASHING" PAIN 05/26, WILL MEDICATE. ABD SOFT/ROUND. REPORTS GENERALIZED TENDERNESS UPON PALPATION. ONEAL DRAINING URINE TO GRAVITY. IV TO RH PATENT AND INFUSING, SITE WNL. CALL LIGHT WITHIN REACH, BED AT LOWEST POSITION. WILL CONTINUE TO MONITOR.
[2019-05-07 21:31] VITALS: BP 110/56
--- NOTE | 2019-05-08 00:14 | NUR ---
PT C/O 04/25 PAIN TO RLE. NO PAIN MEDS DUE AT THIS TIME. DR. ALBARADO MADE AWARE AND REQUESTED ALT PAIN MED.
--- NOTE | 2019-05-08 00:37 | NUR ---
ONE TIME DILAUDID GIVEN FOR RLE PA IN 05/26. PT ALSO HAD MEDIUM LOOSE/LIQUID BROWN STOOL. CLEANED AND LINENS CHANGED. RLE ELEVATED WITH PILLOWS. DRESSING INTACT. BREATHING EVEN/UNLABORED ON RA. CALL LIGHT WITHIN REACH, BED AT LOWEST POSITION. WILL CONTINUE TO MONITOR.
--- NOTE | 2019-05-08 05:47 | NUR ---
PT AWAKE AND RESTING IN BED. C/O 8/10 PAIN TO RLE. NORCO GIVEN PER ORDER. BREATHING EVEN/UNLABORED ON RA, SPO2 89-91%. DENIES SOB. 2L NC APPLIED, SPO2 UP TO 95%. NO SIGNIFICANT CHANGES DURING SHIFT. RLE SPLINT WITH DRESSING CDI, ELEVATED WITH PILLOWS. WOUND VAC TO BE APPLIED TODAY. CALL LIGHT WITHIN REACH, BED AT LOWEST POSITION. WILL ENDORSE TO DAY NURSE.
[2019-05-08 05:54] VITALS: BP 112/67
[2019-05-08 07:20] VITALS: BP 112/67
--- NOTE | 2019-05-08 07:20 | NUR ---
PATIENT IN BED, BED TO THE LOWEST POSITION. PATIENT IS A/O X4. PATIENT IS ON 2 L NASAL CANNULA. NO S/S OF RESPIRATORY DISTRESS. PATIENT DENIES PAIN AT THIS TIME. PATIENT HAS IV ACCESS NOTED TO LFA, WITH N/S INFUSING AT 100 ML/HR. CALL LIGHT WITHIN REACH, HEELS ARE OFF LOADED WITH PILLOWS, WILL CONTINUE TO MONITOR.
[2019-05-08 07:27] LABS: CALCIUM 7.8 mg/dL (8.5-10.1); CARBON DIOXIDE 32.6 mmol/L (21-32); CHLORIDE SERUM 106 mmol/L (98-107); CREATININE SERUM 0.7 mg/dL (0.6-1.0); GFR1 > 60 mL/min; GLUCOSE SERUM 82 mg/dL (74-106); POTASSIUM SERUM 3.8 mmol/L (3.5-5.1); SODIUM SERUM 143 mmol/L (136-145)
[2019-05-08 07:52] LABS: BASOPHIL % 0.3 % (0-2); PLATELET COUNT 342 x10^3mcL (130-400)
[2019-05-08 07:59] LABS: RED CELL DISTRIBUTION WIDTH 18.3 % (11.5-14.5)
--- NOTE | 2019-05-08 09:17 | NUR ---
SENIOR PRINCIPAL SOFTWARE ENGINEER REPORTED VANCO TROUGH TO BE 19.3. PHARMACIST CALLED AT THIS TIME AND AWARE.
--- NOTE | 2019-05-08 12:20 | NUR ---
PHYSICAL THERAPIST AT BEDSIDE, STATES THAT PATIENT WAS ABLE TO WALK TO THE FERMIN AND BACK. STATES THAT PATIENT WAS NOT COMPLIANT. PATIENT IN BED NOW, NO SIGNS OF DISTRESS, WILL CONTINUE TO MONITOR.
--- NOTE | 2019-05-08 13:29 | NUR ---
PATIENTS TELE MONITOR ASSESSED AT THIS TIME AND IN PLACE, NSR. TELE # 1
--- NOTE | 2019-05-08 15:13 | NUR ---
PATIENT PRE MEDICATED AT THIS TIME, PER DR. TOTH, FOR WOUND VAC. SEE EMAR.
[2019-05-08 16:24] VITALS: BP 114/73
--- NOTE | 2019-05-08 16:58 | NUR ---
PHYSICAL THERAPY DAILY NOTES CO-SIGN All documentation done by the Client Manager [employer] for 05/08/19 has been reviewed. I agree with the documentation. Reviewed/Co-Signed by: Cristhian Guzmán PT Documentation Done by:DAVID ZUÑIGA PTA
--- NOTE | 2019-05-08 17:40 | NUR ---
PATIENT IN BED RESTING COMFORTABLY AT THIS TIME. PATIENT STATED THAT THEY HAD PAIN IN THEIR LEG, AND WERE MEDICATED, SEE EMAR. PATIENT IS FREE FROM ANY DISTRESS AT THIS TIME, HEELS ARE OFF LOADED WITH PILLOWS, CALL LIGHT WITHIN REACH. WILL CONTINUE TO MONITOR.
--- NOTE | 2019-05-08 20:31 | NUR ---
PT CURRENTLY RESTING IN BED, NO ACUTE DISTRESS. A/O X4. TELE #1 SHOWING SINUS RHYTHM, DENIES CHEST PAIN. PULSES PALPABLE IN ALL EXTREMITIES, NO EDEMA NOTED. LUNG SOUNDS CTA BILATERALLY, DENIES SOB. BOWEL SOUNDS ACTIVE, LAST BM 05/08/19. ONEAL CATHETER IN PLACE, YELLOW URINE NOTED. RLE WEAKNESS, NON WEIGHT BEARING TO RLE. S/P RIGHT ANKLE ORIF, DRESSING WITH SPLINT CDI. IV PATENT AND INTACT. BED IN LOWEST POSITION, SIDE RAILS UP X2, CALL LIGHT WITHIN REACH.
[2019-05-08 21:31] VITALS: BP 115/64
--- NOTE | 2019-05-09 02:29 | NUR ---
PT CURRENTLY RESTING IN BED, NO ACUTE DISTRESS. WILL CONTINUE TO MONITOR.
--- NOTE | 2019-05-09 06:08 | NUR ---
PT SLEPT PERIODICALLY THROUGHOUT NIGHT, NO ACUTE DISTRESS. ALL NEEDS MET AND ATTENDED TO. NO SIGNIFICANT CHANGES. IV PATENT AND INTACT. MEDICATED PAIN PER EMAR. BED IN LOWEST POSITION, SIDE RAILS UP X2, CALL LIGHT WITHIN REACH. WILL ENDORSE CARE TO ONCOMING NURSE.
[2019-05-09 06:12] VITALS: BP 111/59
[2019-05-09 06:59] LABS: CALCIUM 8.2 mg/dL (8.5-10.1); CARBON DIOXIDE 32.8 mmol/L (21-32); CHLORIDE SERUM 105 mmol/L (98-107); CREATININE SERUM 0.7 mg/dL (0.6-1.0); GFR1 > 60 mL/min; GLUCOSE SERUM 71 mg/dL (74-106); POTASSIUM SERUM 3.3 mmol/L (3.5-5.1); SODIUM SERUM 141 mmol/L (136-145)
[2019-05-09 07:12] LABS: BASOPHIL % 0.9 % (0-2); PLATELET COUNT 339 x10^3mcL (130-400)
[2019-05-09 07:13] LABS: RED CELL DISTRIBUTION WIDTH 18.6 % (11.5-14.5)
--- NOTE | 2019-05-09 07:50 | NUR ---
PATIENT A/OX4, ABLE TO MAKE NEEDS KNOWN AND FOLLOW COMMANDS. TELE 1, DENIES CP. DENIES HEADACHE. REPORTS PAIN TO BACK CHRONIC REQUESTING FOR PAIN MED. LUNGS CTA, O2 SAT 93% ON RA, ENCOURAGED TO DEEP BREATHE EXERCISE EVERY HOUR. BOWEL SOUNDS ACTIVE, ADMITS TO PASSING GAS AND HAD BM LAST NIGHT. ONEAL IN PALCE DRAINING YELLOW URINE TO GRAVITY. RLE WITH DRESSING W/SPLINT AND ELEVATED ON PILLOW. TOES MOBILE AND SENSATION INTACT. IV ACCESS TO LFA SITE WNL. CALL LIGHT WITHIN REACH.
--- NOTE | 2019-05-09 12:20 | NUR ---
ANA BLANCO REP AT BEDSIDE EVALUATING PATIENT. NO SIGN OF ACUTE DISTRESS.
[2019-05-09 13:16] VITALS: BP 102/68
--- NOTE | 2019-05-09 13:45 | NUR ---
PHYSICAL THERAPIST WAS AT BEDSIDE FOR PT.
[2019-05-09 16:56] VITALS: BP 129/63
--- NOTE | 2019-05-09 18:20 | NUR ---
PATIENT ATE DINNER MEAL, TOLERATED WELL. NO SIGNFICANT CHANGE IN CONDITION. WILL CONT TO MONITOR AND ENDORSE TO NOC NURSE.
--- NOTE | 2019-05-09 19:57 | NUR ---
AWAKE ALERT ORIENTED VERBAL NOT IN ANY DISTRESS LUNGS CTA AAO X3 VERBAL COOPERATIVE, NO C/O PAIN, INTACT DRESSING TO RT ANKLE ORIF / REVISION, NO SIGNS OF BLEEDING, IVF NS @ 100CC/HR IV ACCESS LFA PATENT NON INFIL, TELE #1 SR IN THE MONITOR NO CP OR PRESSURE, F/C DRAINING FREELY YELLOW COLORED URINE OUTPUT, NO SEDIMENTS, SHIFT ASSESSMENT DONE, ATTENDED NEEDS CALL LIGHT AT REACH CONT TO MONITOR.
[2019-05-09 20:00] VITALS: BP 123/59
--- NOTE | 2019-05-09 22:03 | NUR ---
PT ASKING FOR SLEEPING PILLS, SHE STATED THAT AM DOCTOR PROMISED HER THAT SHE WILL GET SLEEPING PILLS TONIGHTDR NG NOTIFIED, AWAITING FOR ORDERS.
--- NOTE | 2019-05-09 23:22 | NUR ---
AMBIEN 5MG PO GIVEN X1 DOSE FOR SLEEP MANAGEMENT, MINIMIZED ROOM ACTIVITY, ROOM LIGHT ON DIMMED, CONT TO MONITOR
--- NOTE | 2019-05-10 00:30 | NUR ---
RICK'D PT FROM [facility] PER MD'S ORDER.
[2019-05-10 05:27] VITALS: BP 118/68
--- NOTE | 2019-05-10 06:20 | NUR ---
SLEPT WELL DURING THE SHIFT NO SIGNIFICANT CHANGES CONT TO MONITOR.
--- NOTE | 2019-05-10 06:23 | NUR ---
NEW IV ACCESS ESTABLISHED @ [facility] G#20 WITH GOOD BLD RETURNED.
--- NOTE | 2019-05-10 07:24 | NUR ---
RECEIVED BEDSIDE REPORT, PATIENT LYING IN BED, BREATHING/EVEN AND UNLABORED. EASILY ARROUSABLE. A/OX3 ABLE TO MAKE NEEDS KNOWN, FOLLOW COMMANDS. EQUAL JOURNEYMAN ELECTRICIAN PV INSTALLER STRENGTH. DENIES HEADACHE. DENIES FEELING SOB. PERIPHERAL PULSES PALPABLE, NO EDEMA VISUALIZED. BOWEL SOUNDS ACTIVE, DENIES N/V. ADMITS TO PASSING GAS. ONEAL IN PLACE DRAINING YELLOW URINE TO GRAVITY. RLE DRESSING AND SPLINT CDI. RLE ELEVATED, WILL CONT TO APPLY ICE. IV ACCESS TO RAC SITE WNL, NO REDNESS/SWELLING. NO ACUTE DISTRESS AT THIS TIME. CALL LIGHT WITHIN REACH.
[2019-05-10 09:24] VITALS: BP 102/45
--- NOTE | 2019-05-10 11:50 | NUR ---
SHEYLA COORDINATOR NORIS AT BEDSIDE, REPORT GIVEN. NO ACUTE DISTRESS AT THIS TIME.
[2019-05-10 11:58] LABS: CALCIUM 8.7 mg/dL (8.5-10.1); CARBON DIOXIDE 24.2 mmol/L (21-32); CHLORIDE SERUM 106 mmol/L (98-107); CREATININE SERUM 0.8 mg/dL (0.6-1.0); GFR1 > 60 mL/min; GLUCOSE SERUM 112 mg/dL (74-106); PLATELET COUNT 305 x10^3mcL (130-400); POTASSIUM SERUM 3.9 mmol/L (3.5-5.1); RED CELL DISTRIBUTION WIDTH 18.9 % (11.5-14.5); SODIUM SERUM 140 mmol/L (136-145)
--- NOTE | 2019-05-10 12:21 | NUR ---
PHYSICAL THERAPIST AT BEDSIDE FOR PT. PATIENT HEPLOCKED. AMBULATING WITH WALKER, NWB TO RLE. WILL CONT TO MONITOR.
[2019-05-10] MEDS ORDERED: ROC1I IV (12:23)
[2019-05-10] MEDS ORDERED: PROA PO (12:25)
[2019-05-10 12:42] VITALS: BP 105/69
[2019-05-10 14:03] LABS: BAND NEUTROPHIL 1 % (0-10); BASOPHIL 0 % (0-2); MONOCYTE 4 % (0-7); SEGMENTED NEUTROPHILS 73 % (37-75); ovalocyte/elliptocyte 1+; rbc morphology (normal/abnorm) ABNORMAL (NORMAL); target cell (codocyte) 1+
--- NOTE | 2019-05-10 14:45 | NUR ---
SPOKE TO DR. JOHNSON IN REGARDING TO [facility] CARES AND PT. CURRENTL NO WOUND VAC IN PLACE. DR. JOHNSON SAID HE WILL CALL [facility] TO DC'D WOUND VAC AND TO REVIEW/CONFIRM THE FELT PULLER'S RECOMMENDATIONS. CHARGE NURSE NOTIFIED.
[2019-05-10 17:11] VITALS: BP 111/78
[2019-05-10 17:13] VITALS: BP 111/78
--- NOTE | 2019-05-10 19:02 | NUR ---
PATIENT SIGNED TRANSFER ACKNOWLEDGEMENT FORM TO [facility]. ONEAL IN PLACE DRAINING YELLOW URINE TO ENDICOTT, IV TO [facility] SITE WNL AND FLUSHED WITH NS. ONEAL AND IV TO CONTINUE AT [facility]. DRESSINGS AND SPLINT TO [facility] CDI, REMINDED PATIENT NWB, PATIENT VERBALIZED UNDERSTANDING. NORCO GIVEN FOR C/O PAIN TO BACK. REPORT GIVEN TO BENNY NURSE AT [facility]. [facility] NOW HERE.
== END 2019-05-10 19:04 | DRG 856 ==
LOC: ED 14:23 → IC 17:07 → DU 17:07 → IC 18:20 → DU 05-05 17:14 → MU 05-06 13:46 → DU 05-06 15:15 → MU 05-10 00:54
PROVIDERS: General Practice; Specialist; ADMIT Internal Medicine
PROC: 0SSF04Z Reposition Right Ankle Joint with Internal Fixation Device, Open Approach (ICD-10-PCS; principal; 2019-05-08)
DX: T81.49XA Infection following a procedure, other surgical site, initial encounter (principal); E43 Unspecified severe protein-calorie malnutrition; N17.0 Acute kidney failure with tubular necrosis; F11.20 Opioid dependence, uncomplicated; M86.8X7 Other osteomyelitis, ankle and foot; M24.471 Recurrent dislocation, right ankle; B96.29 Other Escherichia coli [E. coli] as the cause of diseases classified elsewhere; S82.851S Displaced trimalleolar fracture of right lower leg, sequela; J44.9 Chronic obstructive pulmonary disease, unspecified; G89.29 Other chronic pain; M54.9 Dorsalgia, unspecified; X58.XXXS Exposure to other specified factors, sequela; I95.9 Hypotension, unspecified; E83.41 Hypermagnesemia; D64.9 Anemia, unspecified; Z68.24 Body mass index [BMI] 24.0-24.9, adult; Z87.891 Personal history of nicotine dependence
CPT/HCPCS: 36600; 84439; 97110-GP; 97116-GP; 97530-GP; C1713; G0378; J0330; J0696; J1170; J1644; J1885; J2001; J2270; J2405; J2543; J2704; J3010; J3370; J3490; J7030; J7040; J7050; J7120; Q0092

== ENCOUNTER → 2019-05-28 | Day surgery (SDC) | payer OTHER ==
[~2019-05-28] VITALS: Ht 172.7 cm; Wt 76.7 kg
[~2019-05-28] MED LIST changes: +FER300 PO; +MEDDP PO; +PROA PO; +ROC1I IV
[2019-05-28 08:13] VITALS: BP 101/63
[2019-05-28 08:43] LABS: BASOPHIL % 0.7 % (0-2); PLATELET COUNT 260 x10^3mcL (130-400)
[2019-05-28 08:48] LABS: RED CELL DISTRIBUTION WIDTH 18.6 % (11.5-14.5)
[2019-05-28 09:37] LABS: CALCIUM 9.8 mg/dL (8.5-10.1); CARBON DIOXIDE 25.2 mmol/L (21-32); CREATININE SERUM 1.1 mg/dL (0.6-1.0); POTASSIUM SERUM 3.9 mmol/L (3.5-5.1)
[2019-05-28 16:49] VITALS: BP 105/65
== END | disposition home or self-care (01) ==
LOC: OR 07:30 → DS 07:46
PROVIDERS: Podiatrist Foot & Ankle Surgery
PROC: 0QSJ04Z Reposition Right Fibula with Internal Fixation Device, Open Approach (ICD-10-PCS; principal; 2019-05-28 07:30)
DX: T84.223S Displacement of internal fixation device of bones of foot and toes, sequela (principal); S82.851S Displaced trimalleolar fracture of right lower leg, sequela; I25.10 Atherosclerotic heart disease of native coronary artery without angina pectoris; D64.9 Anemia, unspecified; F11.20 Opioid dependence, uncomplicated; F32.9 Major depressive disorder, single episode, unspecified; M54.9 Dorsalgia, unspecified; G89.29 Other chronic pain; Z91.19 Patient's noncompliance with other medical treatment and regimen; Y79.8 Miscellaneous orthopedic devices associated with adverse incidents, not elsewhere classified; W19.XXXS Unspecified fall, sequela
CPT/HCPCS: 76001; C1713; J0690; J1170; J1885; J2270; J2405; J2704; J3010; J3490; J7120; Q0092

== ENCOUNTER 2019-08-02 12:25 | Inpatient (IN) | payer OTHER ==
[~2019-08-02] VITALS: Ht 172.7 cm; Wt 81.0 kg
[~2019-08-02 12:25] MED LIST changes: -FER300 PO; -MEDDP PO
--- NOTE | 2019-08-02 13:01 | NUR ---
BLANCABLE PINK ARE LOWER BACK TO UPPER COCCYX AREA. SKIN INTACT PT ALSO HAS 2 BLUISH AREAS ON BACK OF RIGHT ARM. PT HAS LEFT BACK OF HEAD HEMATOMA WITH REDNESS BUT SKIN INTACT. PT ARRIVES ALERT AND ORIENTED TO NAME ONLY. PER PARAMEDICS PT WAS AT [facility] 2 HOURS AGO AND FELL. THEY ARRIVED ON SCENE AND COULD NOT FIND PT. CALLED AGAIN BY [facility] DUE TO PT TELLING THEM HER HEAD HURT. UPON ARRIVAL PT DENIES ANY PAIN. UNABLE TO REMEMBER EVENT OR ANSWER ALL QUESTIONS AT THIS TIME. VSS. UTO ALL HISTORY, ALLERGIES OR MEDS. PUPILS EQUAL AND REACTIVE AND LARGE IN SIZE AT THIS TIME. DR CAGLE NOTIFIED OF STATUS AND STAT HEAD CT ORDERED. SIDE RAILS UP X 2 AND CALL LIGHT WITHIN REACH. BED IN LOW POSITION
--- NOTE | 2019-08-02 13:14 | NUR ---
PT LEFT FOR CT VIA [facility]
--- NOTE | 2019-08-02 13:46 | NUR ---
PT YELLING THAT SHE WANTS TO GO TO THE RESTROOM. TRES AT BEDSIDE PROVIDING BSC.
[2019-08-02 14:44] LABS: BASOPHIL % 0.5 % (0-2); PLATELET COUNT 331 x10^3mcL (130-400)
[2019-08-02 14:49] LABS: CALCIUM 8.5 mg/dL (8.5-10.1); CARBON DIOXIDE 34.1 mmol/L (21-32); CHLORIDE SERUM 95 mmol/L (98-107); CREATININE SERUM 0.8 mg/dL (0.6-1.0); GFR1 > 60 mL/min; GLUCOSE SERUM 68 mg/dL (74-106); POTASSIUM SERUM 3.9 mmol/L (3.5-5.1); SODIUM SERUM 135 mmol/L (136-145)
[2019-08-02 14:53] LABS: ALKALINE PHOSPHATASE 135 U/L (46-116); ALT/SGPT 12 U/L (14-59); AST/SGOT 18 U/L (15-37); BILIRUBIN TOTAL 0.3 mg/dL (0.20-1.00); TOTAL PROTEIN, SERUM 8.1 g/dL (6.4-8.2)
[2019-08-02 14:54] LABS: ALBUMIN 3.1 g/dL (3.4-5.0)
[2019-08-02 14:54] LABS: AMPHETAMINE QUAL UR NONE DETECTED (See below)
--- NOTE | 2019-08-02 15:05 | NUR ---
PT DESAT TO 77%. INCREASED NC TO 5 LITERS/MIN AND PT INCREASED TO 94%. CALLED R.T. FOR ABG PER DR OSUNA ORDERS
[2019-08-02 15:14] LABS: RED CELL DISTRIBUTION WIDTH 19.6 % (11.5-14.5)
[2019-08-02 15:20] LABS: rbc morphology (normal/abnorm) ABNORMAL (NORMAL)
--- NOTE | 2019-08-02 15:23 | NUR ---
PT IN POSITION OF COMFORT, ARROUSED UPON TACTILE STIMULATION, ON FULL CM, PER DR OSUNA STS PT REQUIRES BIPAP FROM [facility] REDRAW RESULTS, GEOSPATIAL TECHNICIAN ZELDA MADE AWARE.
--- NOTE | 2019-08-02 15:43 | NUR ---
PT MOVED FROM BED 12 TO BED B03
--- NOTE | 2019-08-02 15:44 | NUR ---
PER DR ENRRIQUE DEL TORO TO REMOVE C-COLLAR. C-COLLAR REMOVED. RT AT BEDSIDE TO PLACE PT ON BI-PAP.
--- NOTE | 2019-08-02 15:45 | NUR ---
PORTABLE CXR AT BEDSIDE
--- NOTE | 2019-08-02 15:45 | NUR ---
RT AT BEDSIDE TO PLACE PT ON BIPAP
--- NOTE | 2019-08-02 15:47 | NUR ---
REPORT RECEIVED FROM GEMMA MAGAÑA RN I WILL BE RESUMING CARE OF PT AT THIS TIME
--- NOTE | 2019-08-02 15:47 | NUR ---
UPON ENTERING RM, PT ON BIPAP, PT VSS DOCMENTED, PT AWAKE AND ALERT, WHEN ASSESSING VITALS PT CLOSES EYES HOWEVER PT AROUSABLE, PERRLA, SKIN PINK DRY AND WARM, RESPS E/U, NSR ON CM, PT WALKER AT BEDSIDE, CAST NOTED TO RLE, PT IN VIEW OF NURSE STATION, WILL CONTINUE TO MONITOR
--- NOTE | 2019-08-02 16:46 | NUR ---
AFTER NARCAN ADMIN PT AAOX4, PT STS "I AM COLD AND MY THROAT HURTS" VSS, NSR ON CM, PUPILS REMAIN DILATED BUT REACTIVE, PT MOVING ALL EXTREITIES, WARM BLANKET PROVIDED,
[2019-08-02 17:11] VITALS: BP 127/67
--- NOTE | 2019-08-02 17:16 | NUR ---
RESIDENTFAREED AT BEDSIDE PERFORMING MSE, PT AAOX4, NSR ON CM, VSS, PT TOLERATING BIPAP
--- NOTE | 2019-08-02 17:26 | NUR ---
PT STS "I AM FREEZING, I HATE BEING COLD" PT AFEBRILE, WARM BLANKET PROVIDED
--- NOTE | 2019-08-02 17:32 | NUR ---
PT THRASHING AROUND STATING "I AM COLD I AM FREEZING I DON'T WANT THIS THING ON" ON REFERENCE TO BIPAP, RT CALLED TO BEDSIDE
--- NOTE | 2019-08-02 17:41 | NUR ---
REPORT GIVEN TO CHELSEA VASQUEZ, ICU BED 5
--- NOTE | 2019-08-02 17:45 | NUR ---
PER ZELDA VELASCO RN UPON ENTERING R HAND 24 G IV DISLODGED, BLEEDING CONTROLLED, ANGIOCATH INTACT
[2019-08-02 17:54] LABS: UA SPECIFIC GRAVITY <=1.005 (1.005-1.035); microscopic required? YES; urine erythrocyte TRACE (NEGATIVE)
--- NOTE | 2019-08-02 17:55 | NUR ---
RC'D PT FROM ED VIA [facility] WITH NURSE PRESENT AT BEDSIDE. PT A/A/O/X4, SPEECH CLEAR AND SLOW. PT DENIES FERREIRA/DIZZINESS. PT ABLE TO FOLLOW SIMPLE COMMANDS AND ABLE TO MAKE NEEDS KNOWN. PUPILS 4MM AND BRISK BILAT. NO FACIAL DROOP NOTED. NO EENT DRAINAGE NOTED. RESP E/U. LUNGS DIM IN BASES. ON 2L O2 VIA NC, PT DENIES SOB. SPO2 95%, NO RESP DISTRESS NOTED. NSR ON MONITOR, HR 74. S1S2 AUSCULTATED. PT DENIES CP. PALP PULSES, NO EDEMA NOTED. SKIN WARM TO TOUCH AND CONSISTENT WITH ETHNICITY. IV NOTED TO LEFT FOOT. BEDREST AT THIS TIME, GENERALIZED WEAKNESS. RLE LIMITED ROM, HARD CAST IN PLACE, ELEVATED. PT NPO AT THIS TIME. ABDOMEN SOFT AND NONTENDER. ACTIVE BS. DENIES N/V. NO BM NOTED AT THIS TIME. PT DENIES BURNING UPON URINATION. SKIN W/D. PT ANXIOUS AND RESTLESS. BED IN LOWEST POSITION. CALL LIGHT IN REACH. WILL CONT TO MONITOR CLOSELY.
--- NOTE | 2019-08-02 18:40 | NUR ---
ONEAL CATH INSERTED AT THIS TIME PER MD ORDER WITH YELLOW URINE NOTED, DRAINING TO GRAVITY AND SECURED IN PLACE. PT TOLERATED WELL.
[2019-08-02 18:58] VITALS: BP 120/74
--- NOTE | 2019-08-02 19:19 | NUR ---
RECIEVED REPORT FROM CHRISTINA DUEÑAS. NURSING UPDATES. POC DISUSSED. SEE SHIFT ASSESSMENT FOR ASSESSMENT.
[2019-08-02 19:26] VITALS: BP 113/66
--- NOTE | 2019-08-02 19:58 | NUR ---
VERIFIED PER DR SONA DEL TORO TO GIVE SQ HEPARIN.
--- NOTE | 2019-08-02 20:50 | NUR ---
PLACED PATIENT ONTO BIPAP SETTINGS: 09/21 RATE 16 FIO2 30%.
[2019-08-02 23:56] VITALS: BP 90/58
--- NOTE | 2019-08-03 00:16 | NUR ---
SPO2 MAINTAINED 100%. PRIOR TO PLACING PATIENT ON BIPAP, PT WAS ON ROOM AIR SPO2 96%. DECREASED FIO2 FROM 30% TO 24%.
--- NOTE | 2019-08-03 01:25 | NUR ---
PT CURRENTLY HAS A MAP OF 58. EVEN AFTER ADJUSTING BP CUFF, BP CONTINUES TO BE LOW. MADE DR. MAGALLANES AWARE. ORDERED 500 ML BOLUS. WILL FOLOW THROUGH WITH ORDER.
[2019-08-03 03:54] VITALS: BP 102/64
--- NOTE | 2019-08-03 04:56 | NUR ---
RIDING DOUBLE AT [facility] FOR BLOOD DRAW.
[2019-08-03 05:21] LABS: BASOPHIL % 0.1 % (0-2); PLATELET COUNT 326 x10^3mcL (130-400)
[2019-08-03 05:33] LABS: RED CELL DISTRIBUTION WIDTH 19.1 % (11.5-14.5)
[2019-08-03 05:42] LABS: CALCIUM 7.9 mg/dL (8.5-10.1); CARBON DIOXIDE 36.2 mmol/L (21-32); CHLORIDE SERUM 102 mmol/L (98-107); CREATININE SERUM 0.7 mg/dL (0.6-1.0); GFR1 > 60 mL/min; GLUCOSE SERUM 84 mg/dL (74-106); POTASSIUM SERUM 3.9 mmol/L (3.5-5.1); SODIUM SERUM 142 mmol/L (136-145)
--- NOTE | 2019-08-03 05:55 | NUR ---
PT TAKEN OFF BIPAP AND PUT ON 4L NC. O2SAT 98%.
--- NOTE | 2019-08-03 06:47 | NUR ---
DR. GUERRIER AT BEDSIDE ASSESSING PT. UPDATES PROVIDED.
[2019-08-03 07:00] VITALS: BP 94/58
--- NOTE | 2019-08-03 07:00 | NUR ---
RECEIVED REPORT FROM YIFAN VASQUEZ. ALL QUESTIONS ANSWERED AND ADDRESSED. WILL ASSUME CARE OF PT.
[2019-08-03 08:30] VITALS: Ht 172.7 cm; Wt 81.0 kg
--- NOTE | 2019-08-03 11:54 | NUR ---
REPORT GIVEN TO CARLOTA VASQUEZ. ALL QUESTIONS ANSWERED AND ADDRESSED. PT WILL BE GOING TO ROOM 218B WITH TELE MONITOR. PT'S BELONGINGS WILL BE TRANSFERRING WITH PT WELL.
--- NOTE | 2019-08-03 12:30 | NUR ---
RECEIVED PATIENT AWAKE/ALERT, ORIENTED X2, FORGETFUL. PATIENT DON'T REMEMBER WHY SHE IN THE HOSPITAL, UPDATE PATIENT WITH INFORMATION AND PATIENT IN 10 MINUTES. IV TO LT FOOT INTACT AND FLUSH WELL, SECURED. ONEAL INTACT W/ SCANT YELLOW URINE NOTED. RLE CAST AND ELEVATED ON PILLOW. ORIENTED TO CALL LIGHT AND PHONE. BED LOW IN POSITION.
--- NOTE | 2019-08-03 13:24 | NUR ---
NEDRA DTR CALL FOR PATIENT'S UPDATE ON CONDITION, SPOKE TO DTR AND TRANSFER CALL TO PATIENT, PT RESTING WITH EYES CLOSED, NO DISTRESS NOTED. CALL LIGHT WITHIN REACH.
--- NOTE | 2019-08-03 15:29 | NUR ---
DR. GUERRIER AT BEDSIDE UPDATE PATIENT'S MOTHER - NARA. PATIENT SNORING AT THIS TIME. HELD METHADONE UNTIL PATIENT TOTALLY AWAKEN. DR. GUERRIER WAS AWARED.
[2019-08-03 16:12] VITALS: BP 98/62
--- NOTE | 2019-08-03 16:56 | NUR ---
METHADONE 70MG GIVEN FOR PAIN. 07/26 PAIN TO THE BACK. STOPPED IV PUMP DUE TO IV INFILTRATION NOTED ON IV SITE TO THE LEFT FOOT. SWELLING NOTED. WILL RESTORE TO A NEW IV SITE.
--- NOTE | 2019-08-03 17:54 | NUR ---
STARTED NEW IV SITE TO RIGHT WRIST.G22 WITH GOOD BLOOD RETURN AND SECURED WITH DRESSING. IV PATENT AND INTACT. NORMAL SALINE IV FOLLOWED WITH ZOSYN 50ML AT 100ML/H. REPLACED NEW BAG OF IV FLUIDS. PATIENT SLEEPING AND SNORING. DINNER TRAY AT BEDSIDE. NO IMMEDIATE HYPERSENSITIVITY REACTION NOTED.CALL LIGHT WITHIN REACH. NEEDS MET.
--- NOTE | 2019-08-03 19:50 | NUR ---
PT RECIEVED FROM DAY NURSE, PT RESTING IN BED AT THIS TIME. SLEEPY BUT AROUSABLE. A/OX2, REORIENTED TO TIME AND SITUATION. BREATHING E/U ON 4L NS. DENIES SOB. PALPABLE PULSES, NO EDEMA NOTED AT THIS TIME. TELE 4, NSR. DENIES CP, NV, DIZZINESS, AND PALPATATIONS. CAST NOTED TO THE R LEG, EXPOSED TOES PINK, CAP REFILL NOTED. IV TO RIGHT THUMB NOTED. CDI. ONEAL DRAINING TO GRAVITY. BED AT LOWEST POSITION. CALL LIGHT WITHIN REACH. WILL CONTINUE TO MONITOR.
[2019-08-03 21:09] VITALS: BP 92/54
--- NOTE | 2019-08-04 | NUR ---
PT RESTING IN BED AT THIS TIME. NO S/S OF PAIN OR DISCOMFORT NOTED. BREATHING E/U ON 4L NC. NO S/S OF ACUTE DISTRESS NOTED AT THIS TIME. BED AT LOWEST POSITION. CALL LIGHT WITHIN REACH. WILL CONTINUE TO MONITOR.
[2019-08-04 05:23] VITALS: BP 104/60
--- NOTE | 2019-08-04 05:57 | NUR ---
PT RESTING IN BED AT THIS TIME. DENIES PAIN OR DISCOMFORT.BREATHING E/U ON 4L NC. NO SIGNS OF ACUTE DISTRESS AT THIS TIME. ALL NEEDS AND CONCERNS ADDRESSED THIS SHIFT. WILL ENDORSE TO DAY NURSE.
[2019-08-04 07:20] LABS: CALCIUM 8.2 mg/dL (8.5-10.1); CARBON DIOXIDE 31.5 mmol/L (21-32); CHLORIDE SERUM 104 mmol/L (98-107); CREATININE SERUM 0.7 mg/dL (0.6-1.0); GFR1 > 60 mL/min; GLUCOSE SERUM 127 mg/dL (74-106); MAGNESIUM 2.5 mg/dL (1.8-2.4); PHOSPHOROUS 4.2 mg/dL (2.5-4.9); SODIUM SERUM 140 mmol/L (136-145)
--- NOTE | 2019-08-04 08:00 | NUR ---
ALERT. SLOW WITH COMPREHENSION. NEED TO REPEAT STATEMENTS SEVERAL TIMES BEFORE PT UNDERSTANDS. BREATHING FREELY ON RA. NO RESP DISTRESS NOTED. C/O BACK PAIN. TAKING METHADONE. ONLY OTHER MED IS TYLENOL WHICH SHE DOES NOT WANT. PHARMACY AWARE OF METHADONE DUE AT 0900. ABD SOFT. NO NAUSEA. NS INFUSING 100 CC HOUR TO RT WRIST. ONEAL DRAINING YELLOW URINE TOGRAVITY. CALL LIGHT WITHIN REACH. TELE # 4 NSR.
[2019-08-04 08:02] LABS: TOTAL IRON BINDING CAPACITY 423 ug/dL (250-450)
[2019-08-04 08:06] LABS: IRON 17 ug/dL (50-170)
[2019-08-04 08:19] LABS: PLATELET COUNT 332 x10^3mcL (130-400)
[2019-08-04 08:21] LABS: BASOPHIL % 0 % (0-2); RED CELL DISTRIBUTION WIDTH 19.8 % (11.5-14.5)
[2019-08-04 09:53] VITALS: BP 108/62
--- NOTE | 2019-08-04 12:04 | NUR ---
PT WEANED OFF O2 ORDERED AND GATHERED THE FOLLOWING DATA: SPO2 ON RA WAS 90%. WAS UNABLE TO AMBULATE THE PT SHE HAS A CAST ON HER RIGHT LEG. PER PHYSICAL THERAPY, SHE IS ASSISTED AMBULATION AND MODERATE WEIGHT BEARING AND HOPS WHEN SHE WALKS WITH A WALKER. AN ABG WAS DONE THIS MORNING ORDERED BY DR ARRIAGA WITH FOLLOWING RESULTS: PH 7.40, CO2 50.9, PO2 64.8, HCO3 31.5, BE 6.0, SO2 92%. ABG WAS DRAWN ON ROOM AIR.
[2019-08-04 12:54] VITALS: BP 113/62
--- NOTE | 2019-08-04 13:09 | NUR ---
Initial Nutrition Assessment: Dx: altered mental status PMHx: COPD, opiate dependence, chronic back pain PSHx: back sx (2x), rt ankle sx, (April 2019) Labs: (08/04) Na 140, K 5.0, Glu 127 H, BUN 16, Cr 0.7, A1c 6.2, H/H 7.7/26 Meds: Colace, D50%/water, Pepcid, sodium chl 0.9%, solu-medrol, Tylenol, Zofran, zosyn Diet: regular diet PO intake since admission: (08/03) L: 40%; overall av% x 1 meal, likely inadequate. Ht: 172.72 cm / 68 inches / 5'8" Wt: 81 kg / 178 pounds BMI: 27.3 kg/m2, overweight IBW: 140 pounds / 64 kg %IBW: 127% AdjBW: 150 pounds / 68 kg UBW: 158 pounds Age: 58 Food Allergies: No Known Food Allergies Skin: skin w/d, hard cast to RLE. Logan: 19 Edema: none noted GI: abd soft, nontender, active BS, no N/V. Last BM: 08/01/19, formed RD Note (08/04): RDN visited with Pt. Pt was awake, alert, calm, cooperative. Pt reports a good appetite, denies GI distress. Pt answered all of RDN's questions with short answers (see below). Pt denies having questions for RDN at this time and denies desire for nutrition education. Per physician progress note (08/04), Pt is currently undergoing weaning trials and will likely return to board and care in [place] once stable. PT has been requested and is currently pending eval. Pt's tsarks D/C'd, is undergoing bladder training. Problem with: N/V/D/C: denies N/V/D/C Problems with: Chewing: No Swallowing: No Current appetite: Good Recent wt change: None Vitamin/Supplement use: None Special diet at home: Regular Physical activity: ambulates independently Nutrition education given (specify specific nutrition education and handout given): N/A Food-drug interactions? N/A Education given? N/A Estimated Nutritional Needs Based on body weight (68 kg; adjusted BW) Energy: 2771-0026 kcal/day (25-30 kcal/kg for adult maintenance) Protein: 54-68 g/day (0.8-1 g/kg for adult maintenance) Fluid: 1104-5437 mL/day (1 mL/kcal) Nutrition Diagnosis: No nutrition-related dx at this time. Intervention 1. Continue on regular diet as tolerated. 2. RDN and nursing to encourage PO intakes > 50%. 3. If PO intakes continue to be < 50%, MD to consider adding Ensure Enlive 1 bottle with meals TID to provide 1050 kcal, 60 gm protein to help meet nutrient needs. Monitor/Evaluate Goal: PO intake at least 75% of estimated needs Monitor: PO intake, Labs, GI function F/U in 7 days as low risk (08/12)
--- NOTE | 2019-08-04 14:10 | NUR ---
REMOVED ONEAL CATHETER W 10 CC IN BALLOON, 800 CC URINE. GAVE PT BEDSIDE COMMODE. ENCOURAGED TO USE CALL LIGHT FOR ANY NEEDED ASSISTANCE. CALL LIGHT WITHIN REACH.
[2019-08-04 18:22] VITALS: BP 105/72
--- NOTE | 2019-08-04 19:15 | NUR ---
SLEEPING OFF AND ON. CONTINUES ON ZOSYN IV ABX. NS 20 CC HOUR. REQUIRES ASSIST WITH BEDSIDE COMMODE. REINFORCED IMPORTANCE OF CALLING FOR ASSISTANCE BEFORE GETTING UP TO COMMODE. VSS. TELE # 4 NSR. CALL LIGHT WITHIN REACH.
--- NOTE | 2019-08-04 19:30 | NUR ---
RECEIVED PT LAYING IN BED, NO ACUTE DISTRESS OBSERVED. DENIES PAIN OR DISCOMFORT AT THIS TIME. AA/OX3, ABLE TO MAKE NEEDS KNOWN, SPEECH CLEAR AND APPROPRIATE. NSR TO TELE #4, DENIES CP OR PRESSURE. PULSES PALPABLE AND EQUAL THROUGHOUT, NO EDEMA. BREATHING ON RA, EVEN AND UNLABORED, NO SOB OR DYSPNEA OBSERVED, LUNGS CTA, O2 SAT 94% ABD ROUND AND SOFT, NONTENDER, DENIES N/V/D. VOIDS URINE FREELY, ONEAL CATH D/C EARLIER TODAY, BEDSIDE COMMODE WITHIN REACH. GENERALIZED WEAKNESS, HARD CAST TO RLE, NWB, PULSE PRESENT, SENSATION WNL, UP WITH P.T. IV TO RW IN PLACE, DRY, PATENT, INTACT, AND INFUSING IVF WELL, NO S&S PHLEBITIS OR INFILTRATION NOTED. COMFORT AND SAFETY MEASURES IN PLACE. ALL NEEDS ASSESSED AND ATTENDED TO. CALL LIGHT WITHIN REACH. WILL CONTINUE TO MONITOR
--- NOTE | 2019-08-05 01:39 | NUR ---
PT'S IV TO L WRIST FOUND OUT, PT STATES SHE DID NOT REMOVE IT, CATH INTACT. NEW IV STARTED TO LEFT WRIST, 24G, RECONNECTED BACK TO IVF ORDERED. NO S&S PHLEBITIS OR INFILTRATION NOTED.
--- NOTE | 2019-08-05 06:05 | NUR ---
NO SIGNIFICANT CHANGES TO REPORT, PT COMPLIED WITH NURSING CARE THROUGHOUT THE SHIFT WITH NO ACUTE EVENTS OVERNIGHT. NO ACUTE DISTRESS OBSERVED AT THIS TIME, PT LAYING IN BED, BREATHING EVEN AND UNLABORED, EASILY AROUSABLE TO VERBAL STIMULI. COMFORT AND SAFETY MEASURES MAINTAINED. ALL NEEDS ASSESSED AND ATTENDED TO. CALL LIGHT WITHIN REACH. WILL CONTINUE TO MONITOR AND ENDORSE CARE TO DAY SHIFT NURSE
[2019-08-05 06:08] VITALS: BP 132/70; BP 140/77
[2019-08-05 06:10] LABS: PLATELET COUNT 341 x10^3mcL (130-400)
[2019-08-05 06:23] LABS: CALCIUM 8.6 mg/dL (8.5-10.1); CARBON DIOXIDE 31.6 mmol/L (21-32); CHLORIDE SERUM 103 mmol/L (98-107); CREATININE SERUM 0.7 mg/dL (0.6-1.0); GFR1 > 60 mL/min; GLUCOSE SERUM 104 mg/dL (74-106); POTASSIUM SERUM 4.3 mmol/L (3.5-5.1); SODIUM SERUM 141 mmol/L (136-145)
--- NOTE | 2019-08-05 08:00 | NUR ---
ALERT AND ORIENTED. NO RESP DISTRESS, BREATHING FREELY ON RA. SL TO LEFT HAND INTACT. TELE # 4 NSR. CAST INTACT TO RT LOWER LEG. ABLE TO WIGGLE TOES, TOES WARM TO TOUCH. CALL LIGHT WITHIN REACH. BED IN LOW POSITION.
[2019-08-05 08:15] VITALS: BP 111/64
[2019-08-05 08:36] LABS: RED CELL DISTRIBUTION WIDTH 19.1 % (11.5-14.5)
[2019-08-05] MEDS ORDERED: FER300 PO (09:56)
[2019-08-05] MEDS ORDERED: MEDDP PO (09:56)
[2019-08-05 12:45] VITALS: BP 111/64
--- NOTE | 2019-08-05 13:10 | NUR ---
DC'D BACK TO ROOM AND BOARD. IV DC'D TELE # 4 RETURNED TO TELE STATION. TO CALL DR. OCONNOR FOR F/U SHERIF RE: RT FOOT/CAST. MOTHER AT BEDSIDE. DC INSTRUCTIONS REVIEWED WITH AND SIGNED BY PT. PRESCRIPTIONS CALLED IN TO [facility] ON [address].
[2019-08-05 13:22] LABS: BAND NEUTROPHIL 3 % (0-10); MONOCYTE 5 % (0-7); SEGMENTED NEUTROPHILS 65 % (37-75)
[2019-08-05 13:24] LABS: PLATELET MORPHOLOGY PLATELETS NORMAL; ovalocyte/elliptocyte 1+; rbc morphology (normal/abnorm) ABNORMAL (NORMAL)
== END 2019-08-05 14:06 | disposition home or self-care (01) | DRG 917 ==
LOC: ED 12:25 → DU 16:58 → IC 16:58 → DU 08-03 12:19
PROVIDERS: Emergency Medicine; ADMIT Internal Medicine
DX: T42.4X1A Poisoning by benzodiazepines, accidental (unintentional), initial encounter (principal); J96.00 Acute respiratory failure, unspecified whether with hypoxia or hypercapnia; N17.0 Acute kidney failure with tubular necrosis; G92 Toxic encephalopathy; J44.1 Chronic obstructive pulmonary disease with (acute) exacerbation; F11.20 Opioid dependence, uncomplicated; N39.0 Urinary tract infection, site not specified; E44.1 Mild protein-calorie malnutrition; E87.1 Hypo-osmolality and hyponatremia; R73.03 Prediabetes; D50.9 Iron deficiency anemia, unspecified; F11.21 Opioid dependence, in remission; G89.29 Other chronic pain; M54.9 Dorsalgia, unspecified; Y92.018 Other place in single-family (private) house as the place of occurrence of the external cause; Z68.28 Body mass index [BMI] 28.0-28.9, adult; T40.3X1A Poisoning by methadone, accidental (unintentional), initial encounter
CPT/HCPCS: 36600; 82962; 97116-GP; G0378; G0480; J0696; J1644; J2310; J2543; J2920; J3490; J7030; J7040; J7620; J7633; Q0092

== ENCOUNTER 2020-10-14 17:03 | Emergency (ER) | payer OTHER ==
[~2020-10-14] VITALS: Ht 172.7 cm; Wt 90.7 kg
[~2020-10-14 17:03] MED LIST changes: +FER300 PO; +MEDDP PO
[2020-10-14 20:04] VITALS: BP 119/51; Ht 172.7 cm; Wt 90.7 kg
== END 2020-10-14 21:13 | disposition home or self-care (01) ==
LOC: ED 17:03
DX: L03.115 Cellulitis of right lower limb (principal); G89.29 Other chronic pain; M54.9 Dorsalgia, unspecified
CPT/HCPCS: J0696